=== PATIENT | female | born 1970 | race Caucasian/White ===

== ENCOUNTER 2024-10-01 08:50 | Emergency (ER) | payer OTHER, SELFPAY ==
[2024-10-01 08:52] VITALS: BP 176/102
--- NOTE | 2024-10-01 09:28 | ED.GENMED ---
History of Present Illness
<Yeimi Armendariz PA-C - Last Filed: 10/01/24 14:11>
General
Chief Complaint: Back Pain
Source: patient
Exam Limitations: none
Time Seen by Provider: 10/01/24 09:23
Nursing documentation reviewed up to this point in time: agreed with
History of Present Illness
History of Present Illness:
53-year-old female with past medical history of asthma presents emergency department today with concerns of left upper back pain and left-sided chest pain. Patient reports that this for started 3 days ago when she was getting ready to walk outside
to take a walk with her on the cold took her breath away and she started to get the onset of this pain. There is no exertional component. She states that Advil and lidocaine patches takes the edge off of her pain. Patient has no family or
personal history of cardiac disease. She denies any cough or cold-like symptoms, denies any fevers or chills. She denies any abdominal pain, nausea, vomiting. She denies any recent long distance travel, denies any redness or swelling in her lower
extremities. Patient denies any use of exogenous estrogen. Patient denies any injury or trauma to the area.
Review of Systems
<Yeimi Armendariz PA-C - Last Filed: 10/01/24 14:11>
Review of Systems
All Other Systems: ROS reviewed and negative except as documented in HPI and ROS
Phy Exam
<Yeimi Armendariz PA-C - Last Filed: 10/01/24 14:11>
Physical Exam
Physical Exam:
General: Patient is well appearing and in no acute distress; non-toxic
Skin: Warm and dry, no rashes or lesions
Head: Normocephalic, atraumatic
Eyes: Sclera non-icteric. EOMs intact. PERRLA.
Cardiac: Regular rate and rhythm, no murmurs
Peripheral Vascular: No lower extremity swelling or edema
Pulm: Normal respiratory effort, no wheezes, rales, or rhonchi
Musculoskeletal: Mild tenderness to palpation of left upper chest wall. No pain with passive ROM of left shoulder no palpable bony deformities
Neuro: CN II-XII intact, no focal neurologic deficits.
Psychiatric: Appropriate mood and affect.
Course
<Yeimi Armendariz PA-C - Last Filed: 10/01/24 14:11>
Orders/Labs/Results
Orders:
Orders
10/01/24 08:56
Electrocardiogram (*1) Urgent
Reason for Study: Chest Pain
10/01/24 08:57
EKG- Treatment ONCE
10/01/24 09:47
CR Chest - 2 Views Urgent
Comment:
Reason For Exam: left sided chest pain
10/01/24 09:56
Complete Blood Count/With Diff Urgent
Comprehensive Metabolic Panel Urgent
Troponin I Urgent
Abnormal Lab Results
10/01/24
09:56
Absolute Lymphs (auto) 1.1 L 10^3/uL
(1.2-3.4)
Immature Gran % 0.6 H %
(0-0.5)
Glucose 103 H mg/dl
(70-99)
10/01/24 09:56
10/01/24 09:56
Vital Signs
Initial and Last Documented VS:
Initial Vital Signs
Temp Pulse Resp BP Pulse Ox
98.6 F 102 16 176/102 99
10/01/24 08:52 10/01/24 08:52 10/01/24 08:52 10/01/24 08:52 10/01/24 08:52
Last Documented Vital Signs
Temp Pulse Resp BP Pulse Ox
98.6 F 91 20 143/94 99
10/01/24 08:52 10/01/24 11:00 10/01/24 11:00 10/01/24 10:00 10/01/24 08:52
<Sae Joe DO - Last Filed: 10/01/24 11:20>
Orders/Labs/Results
Orders:
Orders
10/01/24 08:56
Electrocardiogram (*1) Urgent
Reason for Study: Chest Pain
10/01/24 08:57
EKG- Treatment ONCE
10/01/24 09:47
CR Chest - 2 Views Urgent
Comment:
Reason For Exam: left sided chest pain
10/01/24 09:56
Complete Blood Count/With Diff Urgent
Comprehensive Metabolic Panel Urgent
Troponin I Urgent
Abnormal Lab Results
10/01/24
09:56
Absolute Lymphs (auto) 1.1 L 10^3/uL
(1.2-3.4)
Immature Gran % 0.6 H %
(0-0.5)
Glucose 103 H mg/dl
(70-99)
10/01/24 09:56
10/01/24 09:56
Vital Signs
Initial and Last Documented VS:
Initial Vital Signs
Temp Pulse Resp BP Pulse Ox
98.6 F 102 16 176/102 99
10/01/24 08:52 10/01/24 08:52 10/01/24 08:52 10/01/24 08:52 10/01/24 08:52
Last Documented Vital Signs
Temp Pulse Resp BP Pulse Ox
98.6 F 91 20 143/94 99
10/01/24 08:52 10/01/24 11:00 10/01/24 11:00 10/01/24 10:00 10/01/24 08:52
<Yeimi Armendariz PA-C - Last Filed: 10/01/24 14:11>
MDM/Problems Addressed
Differential Diagnosis Includes:
see below
MDM/Problems Addressed:
NUMBER AND COMPLEXITY OF PROBLEMS ADDRESSED AT THE ENCOUNTER
� Chronic conditions affecting care: asthma
� Acute Exacerbation and/or Progression of Chronic Illness:
� Differential Diagnosis includes: pneumonia, musculoskeletal sprain/strain, costochondritis, pneumothorax
AMOUNT AND/OR COMPLEXITY OF DATA TO BE REVIEWED AND ANALYZED
� I performed an independent evaluation of and my interpretation is:
EKG: normal sinus rhythm rate 81 with no ischemic changes
X-rays:
Laboratory Studies:
Other:
� Review of other/old records: no previous ER physician documentation or hospital discharge summaries to review
� Clinical information was obtained by an independent historian: present with patient who provides history
� Prescriptions/Medications Considered but not given: none
� Further testing considered but not performed: n/a
RISK OF COMPLICATIONS AND/OR MORBIDITY OR MORTALITY OF PATIENT MANAGEMENT
� Social determinants of health affecting care: n/a
� Discussion with other providers: none
� Escalation of care including admission/observation vs risk of discharge considered:
53-year-old female with past medical history of asthma presents emergency department today with concerns of left upper back pain and left-sided chest pain. Patient reports that this for started 3 days ago when she was getting ready to walk outside
to take a walk with her on the cold took her breath away and she started to get the onset of this pain. Her CXR does not show any evidence of acute cardiopulmonary abnormality. Suspect inflammatory process/musculoskeletal etiology to
patient's symptoms. Will start on short course of steroids. Patient stable for discharge.
<Yeimi Armendariz PA-C - Last Filed: 10/01/24 14:11>
*Pulse Oximetry
Patient hypoxic: no
*Critical Care Note
Total Time (30-74mins, 75-104mins- exclusive of procedures): Not Applicable
ED Attending Note
<Yeimi Armendariz PA-C - Last Filed: 10/01/24 14:11>
-
Portions of this chart may have been created with voice recognition software.� Occasional wrong word or��sound alike� substitutions may have occurred due to the inherent limitations of voice recognition software.
<Sae Joe DO - Last Filed: 10/01/24 11:20>
ED Attending Note
Patient seen and examined by attending physician: Yes
I performed the substantive portion of visit, reviewed & personally made and approve the management plan that is documented in note by myself or RISA.: Yes
ED Attending Note:
Patient is a 53-year-old female with a history of asthma, myasthenia gravis and rheumatoid arthritis who presents after developing a sharp pain in her left upper to mid back while out for a walk 3 days ago when his significantly very cold. Patient
states it hurts to breathe and move. Patient denies shortness of breath but states breathing does hurt. Patient denies chest pain or palpitations. Patient is concerned that possible cardiac disease. Patient is a longtime non-smoker. Patient
denies any GI or symptoms. Patient denies any risk factors for PE or DVT. Patient denies any leg pain or swelling. On physical exam patient is not in any distress. Heart is regular without murmur, rub or gallop. Lungs are clear. Mildly
reproducible tenderness in the left paravertebral region just inferior to the scapula. Abdomen is soft nontender. Extremities without cyanosis, edema or tenderness. Labs reviewed as well as chest x-ray. Related to the musculoskeletal. Patiently
treated with steroids and discharge.
Discharge Plan
Departure
Patient Disposition: Home (Routine Discharge)
Date of Disposition: 10/01/24
Time of Disposition: 11:15
Patient with high blood pressure during this ER visit?: Yes
Condition: Good
Discharge Problem:
Back pain
Instructions: Back Pain, BLOOD PRESSURE
Prescriptions:
New
prednisone 20 mg tablet
40 mg PO DAILY 5 Days Qty: 10 0RF
Referrals:
Divya Gale DO [Family Provider] -
Activity Restrictions/Additional Instructions:
Prednisone sent to your pharmacy.
PLEASE RETURN EMERGENCY DEPARTMENT SHOULD YOU EXPERIENCE ANY ACUTE WORSENING OF HER SYMPTOMS, CHEST PAIN, SHORTNESS OF BREATH, INTRACTABLE NAUSEA, VOMITING, DIZZINESS, LIGHTHEADEDNESS, OR ANY OTHER SIGNS OR SYMPTOMS CONCERNING TO YOU.
Interventions
Interventions:
*Risk Screen - Suicide Last Done: 10/01/24 08:56
*Neglect/Abuse Screening Last Done: 10/01/24 08:56
*ED COVID-19 Vaccine History Last Done: 10/01/24 09:44
*Nursing Disposition Last Done: 10/01/24 11:22
ED-Musculoskeletal Assessment Last Done: 10/01/24 09:44
Discharge Date and Time
Discharge Date/Time: 10/01/24 12:41
Print Language: FRENCH
[2024-10-01 09:43] VITALS: BP 145/79
[2024-10-01 10:00] VITALS: BP 143/94
[2024-10-01 10:02] LABS: % Basophils 1.1 % (0-2); % Eosinophils 1.1 % (0-6); % Immature Granulocytes 0.6 % (0-0.5); % Monocytes 8.4 % (1.7-9.3); % Neutrophils 64.8 % (42.2-75.2); Absolute Basophils 0.1 10^3/uL (0-0.2); Absolute Eosinophils 0.1 10^3/uL (0-0.7); Absolute Lymphocytes 1.1 10^3/uL (1.2-3.4); Absolute Monocytes 0.4 10^3/uL (0.1-0.6); Absolute Neutrophils 3.1 10^3/uL (1.4-6.5); Hemoglobin 13.6 g/dL (12.0-16.0); Mean Corpuscular Hgb 29.1 pg (27.0-31.0); Mean Corpuscular Volume 85.5 fL (81.0-99.0); Mean Platelet Volume 9.9 fL (7.4-10.4); Nucleated Red Blood Cells % 0 %; Platelet Count 298 10^3/uL (130-400); Red Blood Cell Count 4.68 10^6/uL (4.20-5.40); Red Cell Dist. Width 12.4 % (11.5-14.5); White Blood Cell Count 4.8 10^3/uL (4.8-10.8)
[2024-10-01 10:17] LABS: ALT (SGPT) 24 U/L (0-35); AST (SGOT) 30 U/L (14-36); Albumin 4.7 g/dl (3.5-5.0); Alkaline Phosphatase 76 U/L (38-126); Blood Urea Nitrogen 12 mg/dl (7-17); Calcium 9.7 mg/dl (8.4-10.2); Carbon Dioxide 25 mmol/L (22-30); Chloride 104 mmol/L (98-107); Glucose 103 mg/dl (70-99); Potassium 3.9 mmol/L (3.5-5.1); Sodium 139 mmol/L (135-145); Total Bilirubin 0.3 mg/dl (0.2-1.3); Total Protein 7.4 g/dl (6.3-8.2); eGFR > 60.00
[2024-10-01 10:29] LABS: Troponin I < 0.012 ng/ml
== END 2024-10-01 12:41 | disposition home or self-care (01) ==
LOC: EMR 08:50
PROVIDERS: Physician Assistant; EMERGENCY PHYSICIAN Emergency Medicine; FAMILY PHYSICIAN Internal Medicine
DX: M54.6 Pain in thoracic spine (principal); R03.0 Elevated blood-pressure reading, without diagnosis of hypertension; J45.909 Unspecified asthma, uncomplicated; G70.00 Myasthenia gravis without (acute) exacerbation; M06.9 Rheumatoid arthritis, unspecified
CPT/HCPCS: 99285; 71046; 80053; 84484; 85025; 93005

== ENCOUNTER 2025-07-27 15:23 | Inpatient (IN) | payer OTHER, SELFPAY ==
[2025-07-25 01:14] VITALS: BP 146/102
--- NOTE | 2025-07-25 02:34 | ED.GENMED ---
History of Present Illness
General
Chief Complaint: Cough
Time Seen by Provider: 07/25/25 01:40
Nursing documentation reviewed up to this point in time: agreed with
History of Present Illness
History of Present Illness:
54-year-old female presents to the ER with her for evaluation and treatment of severe cough which has prevented her from sleeping this week. Patient started getting sick on Sunday, similar to her . Patient has noted decreased
appetite and severe cough causing her to vomit frequently. Patient states that this is similar to when she had pertussis. She is on long-term immunosuppressants due to her prior history of myasthenia gravis and rheumatoid arthritis. She denies
any fevers this week. She did see her primary care physician and was initiated on inhalers along with Tessalon Perles. Patient notes no improvement in her symptoms, and in fact worsening today prompting visit to the ER. She denies any prior
history of requiring mechanical ventilation.
Review of Systems
Review of Systems
Allergies reviewed?: Yes
Phy Exam
Physical Exam
Physical Exam:
Patient is awake, alert, appears in anxious, preferring to stand at the bedside, head is NCAT, PERRL, EOMI , Right eye with scleral injection, mucous membranes dry, conjunctiva pink, heart regular rate and rhythm without murmurs or ectopy, lungs
with decreased air movement, spastic barking cough provoked with inspiration, no crepitus, no JVD, abdomen is soft and nontender on palpation, extremities without edema, GCS is 15
Course
Orders/Labs/Results
Orders:
Orders
07/25/25 02:16
Albuterol Sulfate [Ventolin Nebules] 10 mg INH R NOW STA
MethylPREDNISolone PF [Solu-Medrol Pf] 125 mg IV NOW STA
CR Chest Portable - 1 View Urgent
Comment:
Reason For Exam: cough
Reason Study Needs to be Portable: Unable to Transport
07/25/25 02:26
Bordetella Pertussis IgA,G,M [S] Urgent
Complete Blood Count/With Diff Urgent
Comprehensive Metabolic Panel Urgent
Influenza A+B Rapid Molecular Urgent
DOUGLAS Source: Nasal Swab
Specimen Description:
Respiratory Syncytial Virus Urgent
DOUGLAS Source: Nasal Swab
Specimen Description:
Date Specimen was Collected: 07/25/25
Time Specimen was Collected: 02:17
07/25/25 02:34
Urinalysis Reflex To Culture Urgent
0.9% Sodium Chloride 1000 ml [Nss] 1,000 ml IV BOLUS
07/25/25 03:31
Morphine Sulfate 2 mg IV NOW STA
Abnormal Lab Results
07/25/25
02:26
Absolute Neuts (auto) 6.8 H 10^3/uL
(1.4-6.5)
Absolute Monos (auto) 1.0 H 10^3/uL
(0.1-0.6)
Lymphocytes % 15.5 L %
(20.5-51.1)
Monocytes % 10.7 H %
(1.7-9.3)
Chloride 108 H mmol/L
(98-107)
Creatinine 0.5 L mg/dL
(0.6-1.0)
Glucose 100 H mg/dl
(70-99)
07/25/25 02:26
07/25/25 02:26
CBC reassuring. Kidney function preserved.
Vital Signs
Initial and Last Documented VS:
Initial Vital Signs
Temp Pulse Resp BP Pulse Ox
98.1 F 106 24 146/102 98
07/25/25 01:14 07/25/25 01:14 07/25/25 01:14 07/25/25 01:14 07/25/25 01:14
Last Documented Vital Signs
Temp Pulse Resp BP Pulse Ox
98.2 F 100 14 128/87 98
07/25/25 02:55 07/25/25 03:03 07/25/25 03:03 07/25/25 03:03 07/25/25 03:03
MDM/Problems Addressed
Differential Diagnosis Includes:
Differential diagnosis to consider but not limited to pneumonia, bronchospasm, RAD, interstitial pneumonitis along with other etiologies considered
Chronic conditions affecting care:
Myasthenia gravis
*Radiology
Radiology exam reviewed: preliminary read by ED provider (I independently viewed and interpreted portable chest x-ray showing no infiltrate, clear lungs, no pneumothorax)
*Pulse Oximetry
SaO2: 98
Oxygen Mode of Delivery: Room air
Patient hypoxic: no
*Critical Care Note
Total Time (30-74mins, 75-104mins- exclusive of procedures): Not Applicable
Update Note
Update Note:
Patient with persistent coughing throughout entire period of observation in the ER. Patient given IV steroids along with hour-long breathing treatment with no change in her symptoms. Discussed with patient and present at bedside clear
chest x-ray. Reassuring labs so far. Flu testing negative. Awaiting pertussis testing. Given inability to cease coughing, I would feel comfortable sending patient home, in particular as she has been able to eat or drink and is immunocompromised
from her chronic medications. They agree with plan for admission. I reviewed patient presentation with the hospitalist.
ED Attending Note
-
Portions of this chart may have been created with voice recognition software.� Occasional wrong word or��sound alike� substitutions may have occurred due to the inherent limitations of voice recognition software.
Discharge Plan
Departure
Patient Disposition: Admit
Date of Disposition: 07/25/25
Time of Disposition: 03:37
Presentation/result/management discussed w/ accepting MD/DO: Hospitalist
Discharge Problem:
intractable cough, Immunosuppressed status
Prescriptions:
No Action
multivitamin Tablet
2 tab PO DAILY
fluticasone propion-salmeterol [Advair Diskus] 250-50 mcg/dose Blister With Device
1 inh INHALATION BID
benzonatate [Tessalon Perles] 100 mg Capsule
100 mg PO TID PRN (Reason: cough)
mycophenolate mofetil [CellCept] 200 mg/mL Suspension For Reconstitution
PO BID
Patient Comments:
pt does not know mg
albuterol sulfate 5 mg/mL Solution For Nebulization
2.5 mg INHALATION Q6H PRN (Reason: cough)
cholecalciferol (vitamin D3) [Vitamin D3] 25 mcg (1,000 unit) Tablet
25 mcg PO DAILY
Interventions
Interventions:
*Risk Screen - Suicide Last Done: 07/25/25 01:14
*Neglect/Abuse Screening Last Done: 07/25/25 01:14
*ED- Fall Risk Assessment Last Done: 07/25/25 01:14
*ED COVID-19 Vaccine History Last Done: 07/25/25 01:14
*ED Influenza Vaccine History Last Done: 07/25/25 01:14
ED- Pulmonary Assessment Last Done: 07/25/25 02:30
Discharge Date and Time
Print Language: CENTRAL AFRICAN
[2025-07-25] MEDS: SOLU-MEDROL PF 125 MG IV (02:35)
[2025-07-25 02:41] VITALS: BMI 27.1
[2025-07-25] MEDS: VENTOLIN NEBULES 10 MG INH (02:50)
[2025-07-25] MEDS: NSS 1000 IV ×3 (03:00→19:23)
[2025-07-25 03:02] LABS: Hematocrit 37.7 % (37.0-47.0); Hemoglobin 12.8 g/dL (12.0-16.0); Mean Corp Hgb Conc. 34.0 g/dL (33.0-37.0); Mean Corpuscular Volume 82.9 fL (81.0-99.0); Nucleated Red Blood Cells % 0 %; Platelet Count 337 10^3/uL (130-400); Red Cell Dist. Width 12.1 % (11.5-14.5)
[2025-07-25 03:03] VITALS: BP 128/87
[2025-07-25 03:22] LABS: ALT (SGPT) 25 U/L (0-35); AST (SGOT) 25 U/L (14-36); Albumin 4.9 g/dl (3.5-5.0); Alkaline Phosphatase 101 U/L (38-126); Blood Urea Nitrogen 9 mg/dl (7-17); Calcium 10.1 mg/dl (8.4-10.2); Carbon Dioxide 23 mmol/L (22-30); Chloride 108 mmol/L (98-107); Estimated Creatinine Clearance 92 ml/min; Glucose 100 mg/dl (70-99); Potassium 3.9 mmol/L (3.5-5.1); Sodium 141 mmol/L (135-145); Total Protein 7.9 g/dl (6.3-8.2); eGFR > 60.00
[2025-07-25] MEDS: MORPHINE SULFATE 2 MG IV ×2 (03:46→08:00)
[2025-07-25 03:57] LABS: Urine Character Clear (Clear)
--- NOTE | 2025-07-25 04:40 | HPS.HSE ---
Family Physician
-
Family Physician: Divya Gale
Chief Complaint
-
Cough
History of Present Illness
This is a 54-year-old female with a plus past medical history significant for myasthenia gravis, rheumatoid arthritis on CellCept, who history of recurrent cough symptoms but no known diagnosis of asthma who presents to the emergency department with
approximately 1 week of a nonproductive cough.
Patient reported that she began having symptoms about 4 days after spouse had upper respiratory symptoms. He had cough and congestion and he did take antibiotic. Patient reported that she saw her PMD about 3 days after onset of symptoms was not
placed on any antibiotics. She was prescribed some inhalers. Patient reports mostly a nonproductive cough. She reports that the cough paroxysmal and sometimes incessant and prevents her from sleeping. It is not to be worse when she lays down.
She reports a very dry throat. She reports some nasal congestion and some rhinorrhea. She also reports some left heel discomfort and fullness. She now also reports right eye redness. She reports a cough associated with tachycardia and some chest
discomfort. She has not had any fevers or chills.
Patient reports that she had trouble swallowing large pills but denies any trouble swallowing food or coughing when eating or drinking regular food. She had a negative COVID test at home.
In the Emergency Department she was afebrile, blood pressure was 128/87, she was tachycardic to 133 and she was satting 97% on room air.
Chest x-ray shows no acute infiltrates. Influenza test and RSV test were negative. CBC was unremarkable. Electrolytes BUN/creatinine were all normal. Pertussis testing pending.
Medical History
Past Medical History
Past Medical History: Reports Other (Myasthenia)
Past Surgical History: Reports Other
Social History
Tobacco: Non-smoker
Alcohol: None
Drug: None
Family History
Family History: Not pertinent
Allergies / Home Medications
Allergies reflects when Allergies were last updated in [employer].
Home Medications with original date entered in [employer]
Allergy/Medication List:
Allergies
Allergy/AdvReac Type Severity Reaction Status Date / Time
pseudoephedrine (From AdvReac Mild heart Verified 07/25/25 01:13
Sudafed) racing
guaifenesin (From Mucinex) AdvReac shoking Verified 07/25/25 01:13
IVIG Allergy Unknown Uncoded 07/25/25 01:13
Home Medications
albuterol sulfate 5 mg/mL(0.5 %) solution for nebulization 2.5 mg inhalation Q6H PRN cough 07/25/25
benzonatate 100 mg capsule 100 mg PO TID PRN cough 07/25/25
cholecalciferol (vitamin D3) 25 mcg (1,000 unit) tablet (Vitamin D3) 25 mcg PO DAILY 07/25/25
fluticasone 250 mcg-salmeterol 50 mcg/dose blistr powdr for inhalation (Advair Diskus) 1 inh inhalation BID 07/25/25
multivitamin 2 tab PO DAILY 07/25/25
mycophenolate mofetil 200 mg/mL oral powder for suspension (CellCept) mg PO BID 07/25/25
Review of Systems
-
Constitutional: Reports No Symptoms
EENT: Reports Runny Nose
Respiratory: Reports Cough
Cardiac: Reports No Symptoms
Abdomen/GI: Reports No Symptoms
: Reports No Symptoms
Musculoskeletal: Reports No Symptoms
Skin: Reports No Symptoms
Neurological: Reports No Symptoms
Endocrine: Reports No Symptoms
Hematologic/Lymphatic: Reports No Symptoms
Psych: Reports No Symptoms
Physical Exam
Vital Signs
Vital Signs
Temp Pulse Resp BP Pulse Ox
98.2 F 133 18 128/87 97
07/25/25 02:55 07/25/25 04:00 07/25/25 04:00 07/25/25 03:03 07/25/25 03:27
Physical Exam
General: Well Developed, Well Nourished and Comfortable
HEENT: NormoCephalic, Anicteric, Moist mucous membranes, PERRLA and [place] Conjunctivae
Respiratory: Clear; No Wheezes, Rales, Rhonchi, Crackles or Non Labored Respirations
Cardiac: S1/S2 and Regular Rhythm
Breast: Deferred by me
GI: Soft, Non Tender, Non Distended and Normal Bowel Sounds
Rectal: Deferred by Provider
Genito-urinary: Deferred by me
Musculoskeletal: No Clubbing, No Cyanosis and No Edema
Skin: Warm
Neuro: AO x 3 and Nonfocal/grossly intact
Hematologic/Lymphatic: No Lymphadenopathy
Laboratory Results
-
07/25/25 02:26
07/25/25 02:26
Laboratory Results
Total Bilirubin 0.5 mg/dl (0.2-1.3) 07/25/25 02:26
AST 25 U/L (14-36) 07/25/25 02:26
ALT 25 U/L (0-35) 07/25/25 02:26
Alkaline Phosphatase 101 U/L (38-126) 07/25/25 02:26
Data Reviewed
-
Diagnostic Radiology: Image Personally Visualized and interpreted
Old Records: Reviewed
Impression/Plan
-
IMPRESSION:
54-year-old female with a history of myasthenia gravis and rheumatoid arthritis on CellCept presents to the emergency department after developing cough, which is nonproductive. She also has some sinus congestion and rhinorrhea as well as a earache.
She has no fevers or chills. X-ray is clear. CBC is unremarkable and electrolytes are within the normal range. She is not requiring oxygen., She had significant cough paroxysms preventing her from sleeping and had to be placed on continuous
nebs in the emergency department. She was also started on steroids. Viral testing is negative.
PLAN:
Laryngobronchitis -suspect possibly cough variant asthma secondary to viral URI giving spouse with recent similar symptoms. Unlikely pertussis but cannot rule out entirely.
- Admit to MedSurg observation
-Continue with albuterol every 3 hours as needed wheezing or shortness of breath or cough
-Continue albuterol every 6 hours standing
-Continue arrived via
-Taper down the steroids to 40 mg daily
-Cough suppression with codeine syrup + tessalon pearles
- No indication for antibiotics at this time
- pulmonary consultation
DVT PPX - SCD
Code status - Full Code
[2025-07-25 05:28] VITALS: BP 133/76
--- NOTE | 2025-07-25 09:39 | CM ---
Patient seen at bedside in ED with patient . Patient states that they live in a 2 story home with her on the first floor. Patient has a nebulizer that is 15 years old and she has not changed the tubing for a long time. Patient uses the [facility] in
[place] on and her current PCP is Dr. Gale. Patient states she anticipates changing but has not done so as of yet. CM reviewed OBS form with patient and and provided forms. Patient is on droplet precautions and states that she
understands OBS form, noted form verbally reviewed and did not have patient sign due to precautions. CM will continue to follow for discharge planning needs.
Plan; home with no needs vs home with VN pending medical treatment form
[2025-07-25] MEDS: DUONEB INH (10:25)
--- NOTE | 2025-07-25 10:33 | W.PN.HOSP.TC ---
Today's Communication/Plan
-
change to decadron, hycodan
add eye oint, pulmicort, cepacol losenges
await pulm
Assessment / Plan
Assessment / Plan
pt is a 54 year old female
Laryngeal bronchitis-- strongly suspect viral with 'pink eye', sore throat, cough, etc--pt is immunosuppressed on cellcept for Myasthenia gravis--RSV and influenza neg--pertussis pending--will check COVID--change oral prednisone to decadron 4mg IV
H7Y--gwwy on antibiotics--cont nebs, add pulmicort--change to hycodan cough med--add cepacol--await pulm input
tachycardia--likely due to coughing and inadequate hydration--start NSS at 125ml/hr
'pink eye'--think viral--will add erythromycin eye ointment for now
DVT Proph - SCD
Code status - Full Code
Anticipated Discharge: 24 - 48 hours
Subjective/Interval History
-
Date of Service: July 25, 2025
pt c/o continuous coughing, laryngitis, pink eye....
Objective Data
-
Labs:
Laboratory Results
07/25/25
02:26
WBC 9.6
Hgb 12.8
Hct 37.7
Plt Count 337
Sodium 141
Potassium 3.9
Chloride 108 H
Carbon Dioxide 23
BUN 9
Creatinine 0.5 L
Glucose 100 H
Calcium 10.1
Total Bilirubin 0.5
AST 25
ALT 25
Alkaline Phosphatase 101
Vital Signs:
max temp for 24 hours
07/25/25
02:55
Temp 98.2 F
Vital Signs
Temp Pulse Resp BP Pulse Ox
98.2 F 124 20 133/76 97
07/25/25 02:55 07/25/25 06:00 07/25/25 06:00 07/25/25 05:28 07/25/25 06:00
Review of Systems
-
All other systems: Reviewed and negative
EENT: Reports Sore Throat
Respiratory: Reports Cough
Physical Exam
-
General: Well Developed, Well Nourished and No Apparent Distress
HEENT: Normocephalic and Atraumatic
Respiratory: Clear to Auscultation; Negative Wheezes or Rhonchi
Cardiac: Regular Rhythm, S1/S2 and Tachycardic; Negative Murmur
GI: Soft, Nontender, Nondistended and Normal Bowel Sounds
Musculoskeletal: No Clubbing, No Cyanosis and No Edema
Skin: Warm
Neuro: Awake
[2025-07-25] MEDS: PULMICORT 0.5 MG INH ×2 (10:56→18:08)
[2025-07-25] MEDS: DUONEB 3 ML INH ×3 (10:56→18:08)
[2025-07-25] MEDS: CELLCEPT 1000 MG PO ×2 (11:37→21:20)
[2025-07-25] MEDS: TYLENOL ORAL SOLUTION 650 MG PO (11:44)
[2025-07-25] MEDS: DECADRON 4 MG IV ×2 (11:45→21:19)
[2025-07-25 12:19] LABS: COVID-19 Antigen Negative (Negative)
[2025-07-25 14:03] VITALS: BP 141/88
[2025-07-25 14:04] VITALS: BMI 26.8
[2025-07-25] MEDS: ANESTHETIC LOZENGE 1 LOZENGE PO (14:17)
[2025-07-25] MEDS: HYCODAN SYRUP 10 ML PO ×2 (14:17→22:15)
[2025-07-25] MEDS: MIRALAX 17 GRAMS PO (14:44)
--- NOTE | 2025-07-25 15:13 | CON.PUL ---
Consultation
Consultation Request
Date/Time Consultation Requested: 07/25/2025
Date/Time Consultation Performed: 07/25/2025
Requesting Provider: Dr. Nash
Performing Provider: Dr. Chi Burris
Reason for Consultation: Acute respiratory insufficiency-asthmatic bronchitis
Medical History
-
History of Present Illness:
54-year-old woman with past medical history significant for myasthenia gravis, rheumatoid arthritis on CellCept, history of recurrent cough episodes, no history of asthma who presented to the emergency room with history of 1 week of nonproductive
coughing. Admitted from the emergency room on 07/25/2025.
Patient developed symptoms about 4 days after her spouse had upper respiratory symptoms.
Reports upper respiratory symptoms.
Denies hemoptysis or phlegm production.
About 3 days prior to admission she was placed on antibiotics by primary doctor.
She was also prescribed some inhalers.
Cough is mostly nonproductive.
No other associated symptoms.
She has significant cough paroxysms with subsequent shortness of breath.
Interfering with his sleep and lifestyle.
Denies any fevers, chills or rash.
-
Chest x-ray without acute infiltrate. All testing has been negative.
We were consulted for evaluation and therapy of this patient.
Past Medical History
Past Medical History: Other (See assessment and plan findings)
Social History
Tobacco: Non-smoker
Alcohol: None
Drug: None
Personal:
Living: With Family
Family History
Family History: Reviewed & Not Pertinent
Allergies / Home Medications
Allergies
Allergy/AdvReac Type Severity Reaction Status Date / Time
pseudoephedrine (From AdvReac Mild heart Verified 07/25/25 01:13
Sudafed) racing
guaifenesin (From Mucinex) AdvReac shoking Verified 07/25/25 01:13
IVIG Allergy Unknown Uncoded 07/25/25 01:13
Home Medications
�Medication �Instructions �Recorded �Confirmed �Last Taken �Type
albuterol sulfate 2.5 mg/3 mL 2.5 mg inhalation R Q4HPRN PRN sob 07/25/25 07/25/25 Unknown History
(0.083 %) solution for nebulization
benzonatate 100 mg capsule 100 mg PO TIDPRN PRN cough 07/25/25 07/25/25 Unknown History
cholecalciferol (vitamin D3) 25 25 mcg PO DAILY 07/25/25 07/25/25 Unknown History
mcg (1,000 unit) tablet (Vitamin
D3)
fluticasone 250 mcg-salmeterol 50 1 inh inhalation R BID 07/25/25 07/25/25 Unknown History
mcg/dose blistr powdr for
inhalation (Advair Diskus)
mycophenolate mofetil 200 mg/mL 1,000 mg PO BID 07/25/25 07/25/25 Unknown History
oral powder for suspension
(CellCept)
therapeutic multivitamin 1 tab PO DAILY 07/25/25 07/25/25 Unknown History
Review of Systems
-
History Source: Patient
All other systems: Negative unless noted
Vitals / Labs / Diagnostic Testing
Vital Signs
Temp Pulse Resp BP Pulse Ox
98.3 F 119 18 141/88 95
07/25/25 14:03 07/25/25 14:03 07/25/25 14:03 07/25/25 14:03 07/25/25 15:12
Lab Data
07/25/25 02:26
07/25/25 02:26
Microbiology
07/25/25 02:26 Nasal Swab Influenza Types A & B (JIGNESH) - Final
Negative for Influenza A & B, NAAT
Negative results must be combined with clinical observations
and patient history.
Nucleic Acid Amplification test (NAAT)performed on the
[employer] platform.
07/25/25 02:26 Nasal Swab Respiratory Syncytial Virus Ag - Final
Negative for Respiratory Syncytial Virus.
A false negative result may be obtained with a specimen
collected early in the acute phase. If symptoms persist, a
new specimen should be tested.
Diagnostic Testing:
Physical Exam
-
HEENT: Normocephalic
Cardiovascular: S1/S2
Respiratory: Clear and Non-Labored Respirations
GI: Soft and Non Distended
Neurology: Awake, Alert and No Motor Deficits
Skin: Warm
General: Comfortable
Assessment
-
Acute tracheobronchitis-asthmatic bronchitis
Chest x-ray 07/25/2025: Reviewed, showed clear lungs.
Negative COVID
Negative influenza/negative RSV
Conditions present prior admission:
Rheumatoid arthritis on CellCept.
Assessment and plan:
Clinical picture likely related to asthmatic bronchitis.
Not bronchospastic on exam.
Unfortunately, significant cough interfering with lifestyle, and sleep.
Likely triggered by viral infection-exposure to who was sick with an upper respiratory infection recently. In her case with ongoing immunosuppression unlikely to mount a more robust response.
-
Agree with IV corticosteroids
Pulmicort twice a day
DuoNebs 3 times a day.
Albuterol as needed
Cough suppression as you are doing
Nasal saline spray
Ideally azelastine nasal spray will be helpful. Has significant postnasal drip.
Intolerant to Benadryl.
Continue systemic IV corticosteroids for now
-
Will add oral azithromycin 500 mg to treat a potential atypical infection and also for anti-inflammatory properties. This may also help in the long-term if he is maintained at a low dose for anti-inflammatory properties.
There is no peripheral eosinophilia-less likely allergy.
Patient does not have history of asthma or any pulmonary problems and she is a never smoker.
-
At this point no indication for CT of the chest but cannot exclude that will be necessary depending on clinical progression.
-
Continue supportive care
Will follow
-
Dr. Burris updated and in detail 07/25/2025.
Will need outpatient pulmonary follow-up.
[2025-07-25] MEDS: ERYTHROMYCIN 0.5% OPHTHALMIC OINTMENT 1 APPLIC OPHTH ×3 (15:17→21:31)
[2025-07-25 15:55] VITALS: BP 142/84
[2025-07-25] MEDS: ZITHROMAX 500 MG PO (16:04)
[2025-07-25] MEDS: ZOFRAN 4 MG IV (21:18)
[2025-07-25] MEDS: OCEAN, SALINE MIST 2 SPRAYS NASAL (21:47)
[2025-07-26] MEDS: HYCODAN SYRUP 10 ML PO ×4 (02:18→21:26)
[2025-07-26] MEDS: ZOFRAN 4 MG PO (02:18)
[2025-07-26 03:00] VITALS: BP 132/86
[2025-07-26] MEDS: NSS 1000 IV (03:27)
[2025-07-26] MEDS: DECADRON 4 MG IV ×3 (03:28→20:43)
[2025-07-26 06:05] VITALS: BMI 26.9
[2025-07-26 07:32] LABS: Hematocrit 35.2 % (37.0-47.0); Hemoglobin 11.8 g/dL (12.0-16.0); Mean Corp Hgb Conc. 33.5 g/dL (33.0-37.0); Mean Corpuscular Volume 87.1 fL (81.0-99.0); Platelet Count 327 10^3/uL (130-400); Red Cell Dist. Width 12.5 % (11.5-14.5)
[2025-07-26] MEDS: PULMICORT 0.5 MG INH ×2 (07:53→18:01)
[2025-07-26] MEDS: DUONEB 3 ML INH ×3 (07:53→18:01)
[2025-07-26 07:55] VITALS: BP 137/89
[2025-07-26 07:55] LABS: Blood Urea Nitrogen 9 mg/dl (7-17); Calcium 9.6 mg/dl (8.4-10.2); Carbon Dioxide 23 mmol/L (22-30); Chloride 110 mmol/L (98-107); Estimated Creatinine Clearance 92 ml/min; Glucose 163 mg/dl (70-99); Magnesium 2.1 mg/dl (1.6-2.3); Potassium 4.1 mmol/L (3.5-5.1); Sodium 141 mmol/L (135-145); eGFR > 60.00
[2025-07-26] MEDS: ERYTHROMYCIN 0.5% OPHTHALMIC OINTMENT 1 APPLIC OPHTH ×4 (08:33→21:26)
[2025-07-26] MEDS: CELLCEPT 1000 MG PO ×2 (08:35→20:42)
[2025-07-26] MEDS: TYLENOL ORAL SOLUTION 650 MG PO (08:37)
[2025-07-26] MEDS: ZITHROMAX 500 MG PO (09:23)
--- NOTE | 2025-07-26 10:09 | W.PN.HOSP.TC ---
Today's Communication/Plan
-
will add daily bowel regimen
increase ointment to both eyes
Assessment / Plan
Assessment / Plan
pt is a 54 year old female
Laryngeal bronchitis-- strongly suspect viral with 'pink eye' (now involving the left eye), sore throat, cough, etc--pt is immunosuppressed on cellcept for Myasthenia gravis--RSV, influenza, covid neg--pertussis pending--change oral prednisone to
decadron 4mg IV S5D--mbgw on antibiotics--cont nebs, add pulmicort--change to hycodan cough med--add cepacol--apprec pulm input
tachycardia--likely due to coughing and inadequate hydration--stop IVF
'pink eye'--think viral--will add erythromycin eye ointment for now
DVT Proph - SCD
Code status - Full Code
Anticipated Discharge: 24 - 48 hours
Subjective/Interval History
-
Date of Service: July 26, 2025
pt feeling a tiny bit better--c/o pink eye moved to the left and constipation
Objective Data
-
Labs:
Laboratory Results
07/26/25
07:05
WBC 12.1 H
Hgb 11.8 L
Hct 35.2 L
Plt Count 327
Sodium 141
Potassium 4.1
Chloride 110 H
Carbon Dioxide 23
BUN 9
Creatinine 0.6
Glucose 163 H
Calcium 9.6
Vital Signs:
max temp for 24 hours
07/25/25
14:03
Temp 98.3 F
Vital Signs
Temp Pulse Resp BP Pulse Ox
97.9 F 115 22 137/89 96
07/26/25 07:55 07/26/25 07:57 07/26/25 07:57 07/26/25 07:55 07/26/25 07:57
I&O
07/25/25 07/26/25 07/27/25
06:59 06:59 06:59
Intake Total 1230 / 1230
Balance 1230 / 1230
Review of Systems
-
All other systems: Reviewed and negative
EENT: Reports Other (pink eye)
Respiratory: Reports Cough
Abdomen/GI: Reports Constipated
Physical Exam
-
General: Well Developed, Well Nourished and No Apparent Distress
HEENT: Normocephalic and Atraumatic; Negative Oxygen
Respiratory: Clear to Auscultation and Other (hoarse voice)
Cardiac: Regular Rhythm and S1/S2; Negative Murmur
GI: Soft, Nontender, Normal Bowel Sounds and Distended
Musculoskeletal: No Clubbing, No Cyanosis and No Edema
Neuro: Awake and Alert
Psych: Calm
[2025-07-26] MEDS: MIRALAX 17 GRAMS PO (11:42)
--- NOTE | 2025-07-26 14:50 | W.PN.PUL3 ---
Today's Communication / Plan
-
Continue current care without change
Hopefully can transition to prednisone tomorrow
Hopefully can be discharged in the next 24 hours-she is improving
Will recommend continue Pulmicort nebulizer at discharge-patient has a nebulizer
Can continue albuterol/DuoNebs as needed
Prednisone taper
After completing 5 days of azithromycin continue low-dose 250 mg every other day for 4 weeks. Recommended short-term follow-up in my office.
Further imaging may be necessary depending on clinical situation.
Will continue to follow
Assessment
-
54-year-old woman known smoker, history of rheumatoid arthritis on CellCept. No previous history of pulmonary problems. Developed a respiratory infection after her . Has reported several weeks of ongoing coughing. Cough paroxysms
interfering with lifestyle. Chest x-ray was clear. We were consulted on 07/25/2025 for evaluation.
Acute tracheobronchitis-asthmatic bronchitis
Chest x-ray 07/25/2025: Reviewed, showed clear lungs.
Negative COVID
Negative influenza/negative RSV
Conditions present prior admission:
Rheumatoid arthritis on CellCept.
Assessment and plan:
Clinical picture likely related to asthmatic bronchitis-suspect post viral.
Not bronchospastic on exam.
Unfortunately, significant cough interfering with lifestyle, and sleep.
Likely triggered by viral infection-exposure to who was sick with an upper respiratory infection recently. In her case with ongoing immunosuppression unlikely to mount a more robust response.
-
Agree with IV corticosteroids-continue without change. Hopefully can start tapering in the next 24 hours.
Pulmicort twice a day (will recommend continue in the outpatient setting after discharge until symptoms clear)-unlikely to be able to perform inhaler technique. Patient has a nebulizer at home
DuoNebs 3 times a day.
Albuterol as needed
Cough suppression as you are doing
Nasal saline spray
Ideally azelastine nasal spray will be helpful. Has significant postnasal drip.
Intolerant to Benadryl.
-
Continue oral azithromycin 500 mg to treat a potential atypical infection and also for anti-inflammatory properties. This may also help in the long-term if he is maintained at a low dose for anti-inflammatory properties (would recommend continue
250 mg every other day upon discharge for about 4 weeks.
There is no peripheral eosinophilia-less likely allergy.
Patient does not have history of asthma or any pulmonary problems and she is a never smoker.
-
At this point no indication for CT of the chest but cannot exclude that will be necessary depending on clinical progression.
-
Has developed pinkeye: Therapy per primary team.
-
Continue supportive care
Will follow
-
Will recommend patient stay off work for about 1 week-to rest her voice. Her voice is already hoarse.
-
Dr. Burris updated and in detail 07/25/2025.
Will need outpatient pulmonary follow-up.
Subjective Data
-
Date of Service:
Date of Service: July 26, 2025
Chief Complaint: Pulmonary Follow Up
Subjective:
Continues to have cough paroxysms
No significant phlegm production
No hemoptysis
Afebrile
Has developed pinkeye
Review of Systems
Cardiopulmonary: Cough
Objective Data
Data Reviewed
Vital Signs / I&O / Oxygen:
Vital Signs
Temp Pulse Resp BP Pulse Ox
97.9 F 102 20 137/89 96
07/26/25 07:55 07/26/25 13:34 07/26/25 13:34 07/26/25 07:55 07/26/25 13:34
Intake and Output
07/25/25 07/26/25 07/27/25
06:59 06:59 06:59
Intake Total 1230 / 1230
Balance 1230 / 1230
SaO2 96
Physical Exam
General: Comfortable
HEENT: Normocephalic
Cardiovascular: S1-S2
Respiratory: Non-Labored Respirations
GI: Soft and Non Distended
Neurology: Awake, Alert and No Motor Deficits
Skin: Warm
Labs/Micro/Reports
Lab Data
07/26/25 07:05
07/26/25 07:05
Microbiology
07/25/25 03:45 Urine Urine Culture - Final
NO GROWTH
07/25/25 02:26 Nasal Swab Influenza Types A & B (JIGNESH) - Final
Negative for Influenza A & B, NAAT
Negative results must be combined with clinical observations
and patient history.
Nucleic Acid Amplification test (NAAT)performed on the
[employer] platform.
07/25/25 02:26 Nasal Swab Respiratory Syncytial Virus Ag - Final
Negative for Respiratory Syncytial Virus.
A false negative result may be obtained with a specimen
collected early in the acute phase. If symptoms persist, a
new specimen should be tested.
[2025-07-26 15:58] VITALS: BP 131/80
[2025-07-26] MEDS: OCEAN, SALINE MIST 2 SPRAYS NASAL (17:00)
[2025-07-26] MEDS: SENOKOT-S 1 TABLET PO (20:43)
[2025-07-26 20:55] VITALS: BP 158/89
[2025-07-26 23:03] VITALS: BP 129/88
[2025-07-27] MEDS: 0.45%NACL 1000 IV (00:10)
[2025-07-27] MEDS: DULCOLAX 10 MG RECTAL (02:45)
[2025-07-27] MEDS: DECADRON 4 MG IV ×3 (04:49→20:59)
[2025-07-27] MEDS: HYCODAN SYRUP 10 ML PO (06:46)
[2025-07-27 07:45] VITALS: BP 135/91
[2025-07-27] MEDS: SENOKOT-S PO (07:56)
[2025-07-27] MEDS: ZITHROMAX 500 MG PO (07:56)
[2025-07-27] MEDS: MIRALAX PO (07:56)
[2025-07-27] MEDS: ERYTHROMYCIN 0.5% OPHTHALMIC OINTMENT 1 APPLIC OPHTH ×4 (07:57→20:59)
[2025-07-27] MEDS: PULMICORT 0.5 MG INH ×2 (08:17→20:02)
[2025-07-27] MEDS: DUONEB 3 ML INH ×3 (08:17→20:02)
[2025-07-27] MEDS: MIRALAX 17 GRAMS PO (08:17)
[2025-07-27] MEDS: CELLCEPT PO ×3 (08:19→21:40)
[2025-07-27 09:24] LABS: Hematocrit 39.6 % (37.0-47.0); Hemoglobin 13.4 g/dL (12.0-16.0); Mean Corp Hgb Conc. 33.8 g/dL (33.0-37.0); Mean Corpuscular Volume 85.5 fL (81.0-99.0); Platelet Count 422 10^3/uL (130-400); Red Cell Dist. Width 12.5 % (11.5-14.5)
--- NOTE | 2025-07-27 09:51 | W.PN.PUL.V3 ---
Today's Communication / Plan
-
No change in Decadron.
Finally course of antibiotics-Augmentin initiated after finish course of azithromycin
Bordetella pending
Assessment
-
54-year-old woman known smoker, history of rheumatoid arthritis on CellCept. No previous history of pulmonary problems. Developed a respiratory infection after her . Has reported several weeks of ongoing coughing. Cough paroxysms
interfering with lifestyle. Chest x-ray was clear. We were consulted on 07/25/2025 for evaluation.
Acute tracheobronchitis-asthmatic bronchitis
Chest x-ray 07/25/2025: Reviewed, showed clear lungs.
Negative COVID
Negative influenza/negative RSV
Conditions present prior admission:
Rheumatoid arthritis on CellCept.
Plan
Respiratory status still tenuous-had an episode of what sounds like laryngospasm.
Supplement oxygen if needed-humidify.
Aspiration precautions.
Nebulizers.
Decadron 4 mg IV every 8 hours
Tessalon
Consider gabapentin.
Avoid narcotics-had hallucinations on Hycodan.
Consider lidocaine nebulizers if cough intractable.
Nasal sprays
CT neck-pending.
CT chest-pending.
Finite course of antibiotics-finished azithromycin-discharge on azithromycin 250 mg every other day for about 4 weeks.
Changed to Augmentin on 07/27/25.
Bordetella pertussis antibodies pending
Will recommend patient stay off work for about 1 week-to rest her voice. Her voice is already hoarse.
Dr. Burris updated and in detail 07/25/[address]
Dr. Nguyen, updated at the bedside 07/27/25.
Will need outpatient pulmonary follow-up.
Subjective Data
-
Date of Service:
Date of Service: July 27, 2025
Chief Complaint: Pulmonary Follow Up and Dyspnea Follow Up
Subjective:
. Had episode of hallucination on Hycodan, also had laryngospasm-like reaction with difficulties breathing, emesis, and dry throat, now feels better, still some shortness of breath, no wheezing, no chest pain
Review of Systems
General: Other ( per HPI)
Objective Data
Data Reviewed
Vital Signs / I&O:
Vital Signs
Temp Pulse Resp BP Pulse Ox
97.9 F 118 20 135/91 96
07/27/25 07:45 07/27/25 08:35 07/27/25 08:35 07/27/25 07:45 07/27/25 08:35
Intake and Output
07/26/25 07/27/25 07/28/25
06:59 06:59 06:59
Intake Total 1230 / 1230 1140 / 1140
Balance 1230 / 1230 1140 / 1140
SaO2: 96
Physical Exam
General: Respiratory Distress (n) and Comfortable
HEENT: Normocephalic and Anicteric
Cardiovascular: Regular Rhythm
Respiratory: Wheeze (n), Crackles (n), Rhonchi (n), Non-Labored Respirations, Accessory Resp Muscle Use (n) and Stridor (n)
GI: Soft and Non Distended
Neurology: Awake, Alert and No Motor Deficits
Skin: Warm, Cyanosis (n) and Jaundice (n)
Labs/Micro/Reports
Lab Data
07/27/25 08:59
Microbiology
07/25/25 03:45 Urine Urine Culture - Final
NO GROWTH
07/25/25 02:26 Nasal Swab Influenza Types A & B (JIGNESH) - Final
Negative for Influenza A & B, NAAT
Negative results must be combined with clinical observations
and patient history.
Nucleic Acid Amplification test (NAAT)performed on the
[employer] platform.
07/25/25 02:26 Nasal Swab Respiratory Syncytial Virus Ag - Final
Negative for Respiratory Syncytial Virus.
A false negative result may be obtained with a specimen
collected early in the acute phase. If symptoms persist, a
new specimen should be tested.
[2025-07-27 09:56] LABS: Blood Urea Nitrogen 14 mg/dl (7-17); Calcium 10.1 mg/dl (8.4-10.2); Carbon Dioxide 25 mmol/L (22-30); Chloride 104 mmol/L (98-107); Estimated Creatinine Clearance 92 ml/min; Glucose 112 mg/dl (70-99); Magnesium 2.5 mg/dl (1.6-2.3); Potassium 4.4 mmol/L (3.5-5.1); Sodium 139 mmol/L (135-145); eGFR > 60.00
--- NOTE | 2025-07-27 09:58 | W.PN.HOSP.TC ---
Addendum entered and electronically signed by Meka Patrick MD 07/27/25 15:25:
Addendum
Patient is not tolerated diet well. She has choking sensation and unable to swallow. She still having cough with tachypnea at times. Continue IV fluid and changed to mechanical soft as tolerated.
Patient discussed panic disorder. Willing to try Ativan if needed. Will reach out to her primary neurologist.
Patient reported that she received tetanus booster at primary care doctor. They usually do DTaP booster. Will call primary care doctor to find out
End
Original Note:
Today's Communication/Plan
-
Change IV fluid to dextrose and normal saline due to low oral intake
Still symptomatic, order CT of the neck and chest. Tessalon [id number], continue steroids. Discussed with radiologist, prefer IV contrast
Change IV fluid to intravenous Unasyn to better coverage
Changed to inpatient
To discussed with pulmonary
Assessment / Plan
Assessment / Plan
Physical Exam
-
General: Well Developed, Well Nourished and No Apparent Distress
HEENT: Normocephalic and Atraumatic; Negative Oxygen
Respiratory: Clear to Auscultation and Other (hoarse voice)
Cardiac: Regular Rhythm and S1/S2; Negative Murmur
GI: Soft, Nontender, Normal Bowel Sounds and Distended
Musculoskeletal: No Clubbing, No Cyanosis and No Edema
Neuro: Awake and Alert
Psych: Calm
pt is a 54 year old female
# cough with hoarseness
Still same symptoms with no improvement
Will do CT neck & chest with contrast. I d/w radiologist, better to use IV dye to better look at neck soft tissue, rule out epiglottitis
Change to Unasyn IV Abx
Change to Tessalon ATC
c/w IV steroid
pulmonary is consulted
tachycardia--likely due to coughing and inadequate hydration
change to IV D5 NS
'pink eye'--think viral--will add erythromycin eye ointment for now
# Borderline high BP
could be stress related or from IV steroid
Will monitor
#Myasthenia Gravis
Primary neurologist DR Phillips
c/w CellCept
DVT Proph - SCD
Code status - Full Code
Total time spent to see the patient, examine the patient, review data and lab results, discuss treatment plan with patient, nursing staff around 55 minutes
Anticipated Discharge: 24 - 48 hours
Subjective/Interval History
-
Date of Service: July 27, 2025
No chest pain
No sob
No fevers
Objective Data
-
Labs:
Laboratory Results
07/27/25
08:59
WBC 14.0 H
Hgb 13.4
Hct 39.6
Plt Count 422 H D
Sodium 139
Potassium 4.4
Chloride 104
Carbon Dioxide 25
BUN 14
Creatinine 0.6
Glucose 112 H
Calcium 10.1
Vital Signs:
Vital Signs
Temp Pulse Resp BP Pulse Ox
97.9 F 118 20 135/91 96
07/27/25 07:45 07/27/25 08:35 07/27/25 08:35 07/27/25 07:45 07/27/25 09:51
I&O
07/26/25 07/27/25 07/28/25
06:59 06:59 06:59
Intake Total 1230 / 1230 1140 / 1140
Balance 1230 / 1230 1140 / 1140
[2025-07-27] MEDS: CELLCEPT 1000 MG PO (10:02)
--- NOTE | 2025-07-27 12:26 | CM ---
Reviewed the chart notes and spoke with the patient at the bedside. The patient is admitted under observational status. The observation letter was provided and explained. The patient had no questions with regards to the letter.
Plan: Discharge to home when medically stable. No needs anticipated at this time.
[2025-07-27] MEDS: D5/0.9% SODIUM CHLORIDE 1000 IV (12:36)
[2025-07-27] MEDS: TYLENOL ORAL SOLUTION 650 MG PO ×2 (12:46→20:57)
[2025-07-27] MEDS: UNASYN IV ×2 (13:51→20:58)
[2025-07-27] MEDS: TESSALON PERLES 200 MG PO ×2 (14:51→21:00)
[2025-07-27 15:35] VITALS: BP 135/89
[2025-07-27] MEDS: ZOFRAN 4 MG PO (16:32)
[2025-07-27] MEDS: SENOKOT-S 1 TABLET PO (20:57)
[2025-07-27] MEDS: OCEAN, SALINE MIST 2 SPRAYS NASAL (22:24)
[2025-07-27 23:00] VITALS: BP 129/85
--- NOTE | 2025-07-27 23:30 | RESPNOTE ---
Addendum entered by Jamal Forrester, RT 07/28/25 00:53:
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
Original Note:
face tent attempted to help pt with complaints of dry mouth and hacking cough. attempt unsuccessful
[2025-07-28] MEDS: ATIVAN 1 MG PO (00:50)
[2025-07-28] MEDS: UNASYN IV ×4 (01:34→21:31)
[2025-07-28] MEDS: DECADRON 4 MG IV (05:00)
--- NOTE | 2025-07-28 06:29 | W.PN.UPDATE ---
Update Note
Progress Note Update
CT neck/chest unremarkable except for tonsil/adenoid hypertrophy and pulm nodule which needs followup. Continues anxious. Fearful of suffocating in her sleep, intractable coughing. Placed her on tele monitor� so we can watch her so hopefully she can
sleep. Agreed to Ativan po dose. here. Tried face tent. Suggested sleeping hunched over on her bedside table since leaning back makes her cough. Psychiatry consult placed for anxiety issues complicating situation.
[2025-07-28 07:45] VITALS: BP 128/86
[2025-07-28] MEDS: DUONEB 3 ML INH ×3 (07:57→19:53)
[2025-07-28] MEDS: PULMICORT 0.5 MG INH ×2 (07:57→19:53)
[2025-07-28] MEDS: D5/0.9% SODIUM CHLORIDE 1000 IV (08:51)
[2025-07-28] MEDS: ERYTHROMYCIN 0.5% OPHTHALMIC OINTMENT 1 APPLIC OPHTH ×4 (09:11→21:02)
[2025-07-28] MEDS: CELLCEPT 1000 MG PO ×2 (09:12→20:54)
[2025-07-28] MEDS: TESSALON PERLES 200 MG PO ×3 (09:12→21:00)
[2025-07-28] MEDS: SENOKOT-S 1 TABLET PO ×2 (09:12→20:54)
[2025-07-28] MEDS: MIRALAX 17 GRAMS PO (09:12)
[2025-07-28] MEDS: ZITHROMAX 500 MG PO (09:16)
--- NOTE | 2025-07-28 09:48 | W.PN.PUL.V3 ---
Today's Communication / Plan
-
Anxiolytics
Psychiatric evaluation
Discontinue steroids
Finite course of antibiotics
ENT evaluation
Speech therapy evaluation
Assessment
-
54-year-old woman known smoker, history of rheumatoid arthritis on CellCept. No previous history of pulmonary problems. Developed a respiratory infection after her . Has reported several weeks of ongoing coughing. Cough paroxysms
interfering with lifestyle. Chest x-ray was clear. We were consulted on 07/25/2025 for evaluation.
Acute tracheobronchitis-asthmatic bronchitis
Chest x-ray 07/25/2025: Reviewed, showed clear lungs.
Negative COVID
Negative influenza/negative RSV
Conditions present prior admission:
Myasthenia gravis
Plan
Respiratory status still tenuous-had an episode of what sounds like laryngospasm or vocal cord dyskinesia/factitious asthma
Supplement oxygen if needed-humidify.
Aspiration precautions.
Nebulizers.
Decadron 4 mg IV every 8 hours-no wheezing-can discontinue steroids as may be aggravating anxiety
Tessalon
Consider adding gabapentin
Avoid narcotics-had hallucinations on Hycodan.
Consider lidocaine nebulizers if cough intractable.
Nasal sprays
Episode last evening responded to Ativan suggesting psych component to vocal cord dyskinesia events
CT neck- 07/27/2025-mild adenoid and tonsillar hypertrophy, no acute abnormalities, mucous retention cyst at the base of the left maxillary sinus
CT chest-07/27/2025-no acute pulmonary process, left upper lobe 3 mm benign calcified granuloma, additional left upper lobe 2 mm nodule is not clearly calcified
Finite course of antibiotics-finished azithromycin-discharge on azithromycin 250 mg every other day for about 4 weeks.
Changed to Augmentin on 07/27/25.
Bordetella pertussis antibodies pending
Recommend psychiatric evaluation
Recommend ENT evaluation
Recommend speech therapy evaluation
Will recommend patient stay off work for about 1 week-to rest her voice. Her voice is already hoarse.
Dr. Burris updated and in detail 07/25/[address]25
Dr[address] Nguyen, updated at the bedside 07/27/25 and lengthy update 07/28/2025-reviewed vocal cord dyskinesia/factitious asthma and need for psych/anxiolytics/speech therapy and ENT evaluation
Will need outpatient pulmonary follow-up.
Subjective Data
-
Date of Service:
Date of Service: July 28, 2025
Chief Complaint: Pulmonary Follow Up and Dyspnea Follow Up
Subjective:
Another episode of what sounds like laryngospasm responding to Ativan, now no complaints of shortness of breath, wheezing or throat tightness
Review of Systems
General: Other (Per HPI)
Objective Data
Data Reviewed
Vital Signs / I&O:
Vital Signs
Temp Pulse Resp BP Pulse Ox
98.0 F 95 18 128/86 97
07/28/25 07:45 07/28/25 07:59 07/28/25 07:59 07/28/25 07:45 07/28/25 07:59
Intake and Output
07/27/25 07/28/25 07/29/25
06:59 06:59 06:59
Intake Total 1140 / 1140 2994 / 2994
Balance 1140 / 1140 2994 / 2994
SaO2: 97
Physical Exam
General: Respiratory Distress (n) and Comfortable
HEENT: Normocephalic and Anicteric
Cardiovascular: Regular Rhythm
Respiratory: Wheeze (n), Crackles (n), Rhonchi (n), Non-Labored Respirations, Accessory Resp Muscle Use (n) and Stridor (n)
GI: Soft and Non Distended
Neurology: Awake, Alert and No Motor Deficits
Skin: Warm, Cyanosis (n) and Jaundice (n)
Labs/Micro/Reports
Lab Data
07/27/25 08:59
07/27/25 08:59
Microbiology
07/25/25 03:45 Urine Urine Culture - Final
NO GROWTH
--- NOTE | 2025-07-28 09:55 | W.PN.HOSP.TC ---
Today's Communication/Plan
-
ENT consulted
Psychiatry consult; uncontrolled panic attacks
Stop steroid ( hallucinations at night)
Assessment / Plan
Assessment / Plan
Physical Exam
-
General: Well Developed, Well Nourished and No Apparent Distress
HEENT: Normocephalic and Atraumatic; Negative Oxygen
Respiratory: Clear to Auscultation and Other (hoarse voice)
Cardiac: Regular Rhythm and S1/S2; Negative Murmur
GI: Soft, Nontender, Normal Bowel Sounds and Distended
Musculoskeletal: No Clubbing, No Cyanosis and No Edema
Neuro: Awake and Alert
Psych: Calm
# cough with hoarseness
acute laryngitis
to finish 5 days of Zithromax
Empiric IV Unasyn
s/p o CT neck & chest with contrast, unremarkable.
c/w Tessalon ATC
dc IV steroid due to lack of wheezes or sore throat and potential of having hallucinations.
Appreciate pulmonary help
# Chocking and inability to breath at night
Patient has prolonged history ( years) of laryngeal issues described as chocking / irritant cough to clear her throat. She sleeps around 45 bed with multiple pillows at baseline. During illnesses like cold, her condition becomes very intense and
unable to swallow/ sleep or breathe. She has not responded to steroid therapy/ inhalation therapy. Ativan helped her to relax and sleep. ENT is consulted to rule out vocal cord pathology/ CT neck ( no masses). Consulted Psychiatry for underlying
anxiety disorder/ panic disorder.
'pink eye'--think viral--will add erythromycin eye ointment for now
#Myasthenia Gravis
Primary neurologist DR Phillips
Seems under control since her chocking episodes were presents for long time. Also steroid therapy did not help.
c/w CellCept
DVT Proph - SCD
Code status - Full Code
Total time spent to see the patient, examine the patient, review data and lab results, discuss treatment plan with patient, nursing staff around 55 minutes
Anticipated Discharge: Within 24 hours
Subjective/Interval History
-
Date of Service: July 28, 2025
Panic attack last night
Objective Data
-
Vital Signs:
Vital Signs
Temp Pulse Resp BP Pulse Ox
98.0 F 95 18 128/86 97
07/28/25 07:45 07/28/25 07:59 07/28/25 07:59 07/28/25 07:45 07/28/25 09:48
I&O
07/27/25 07/28/25 07/29/25
06:59 06:59 06:59
Intake Total 1140 / 1140 2994 / 2994
Balance 1140 / 1140 2994 / 2994
[2025-07-28 11:18] VITALS: BP 125/82
--- NOTE | 2025-07-28 11:29 | CM ---
Reviewed the chart notes. CM continues to be available to patient/family and is monitoring medical plan for needs at discharge.
Plan: Discharge to home when medically stable. No anticipated needs identified at this time.
--- NOTE | 2025-07-28 14:07 | PTOTSP ---
Dysphagia Evaluation
Patient is a 54 year old female with chronic dysphagia related to myasthenia gravis without prior signs concerning for aspiration complications. Patient reported swallowing function is currently at her baseline. Acute on chronic dysphagia risk
factors include current acute tracheobronchitis-asthmatic bronchitis and myasthenia gravis.
Recommend:
1. Regular, Thin Liquids
2. Medications - as best tolerated
3. Strategies: single sips/bites, slow rate with breaks for breathing, pick easier foods for end of meal/when fatigued (i.e., yogurts, drinks), take breaks if fatigued
4. Will f/u briefly at the acute care level. If any acute worsening of dysphagia, consider repeat video swallow study.
5. Will complete further assessment of voice and outpatient education as appropriate if laryngospasm suspected by ENT.
[2025-07-28 15:14] VITALS: BP 134/82
[2025-07-28 15:23] LABS: Bordetella Pertussis Ab, IgA 0.8 IV (<=1.1); Bordetella Pertussis Ab, IgG 2.73 IV (<=1.04); Bordetella Pertussis Ab, IgM 0.2 IV (<=1.1)
[2025-07-28] MEDS: TYLENOL ORAL SOLUTION 650 MG PO (16:08)
--- NOTE | 2025-07-28 16:51 | CON.MD ---
Consultation - Medical
-
chronic cough, laryngospasm
54 yo c Hx Myasthenia gravis, RA on Cellcept presents c chronic cough x 2 weeks
Episodes of choking with airway closing
Afebrile
CXr - Clear
Given steroids ( stopped due to possible side effects, antibiotics and inhalers without relief
PE - pt anxious , NAD
afebrile, no stridor
dry cough
OC - normal
Lungs - clear
Flex endoscopy - normal vocal cords, normal motion
erythema of arytenoids with some mucus in cricopharyngeus
A/P Chronic cough / episodes of laryngospasm
signs of inflammation in post larynx
while can be from viral inflammation, also often seen with GERD. Sx worse with laying down. MG may contribute to muscular weakness and reflux
Initially, would treat with PPI. Dietary modifications although her diet seems pretty good.
Can take a few weeks to improve
OK to discharge if able to tolerate po diet
If symptoms fail to respond, may require change in medication ( BID use or added famotidine) or upper GI endoscopy / barium swallow study
Can follow up as outpt
[2025-07-28] MEDS: NSS (PRESERVATIVE FREE) 10 ML IV (17:47)
[2025-07-28] MEDS: PROTONIX IV 40 MG IV (17:48)
[2025-07-28 19:53] VITALS: BP 132/86
[2025-07-28] MEDS: ATIVAN 0.5 MG PO (20:54)
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
[2025-07-28 23:15] VITALS: BP 115/75
[2025-07-29] MEDS: UNASYN IV (01:09)
[2025-07-29] MEDS: D5/0.9% SODIUM CHLORIDE 1000 IV (03:20)
[2025-07-29 07:02] VITALS: BP 131/84
[2025-07-29] MEDS: PULMICORT 0.5 MG INH (07:19)
[2025-07-29] MEDS: DUONEB 3 ML INH ×3 (07:19→19:13)
[2025-07-29 07:29] LABS: B. Pertussis, IgG IB FHA Positive; B. Pertussis, IgG IB PT Positive; B. Pertussis, IgG IB PT100 Positive
[2025-07-29] MEDS: PROTONIX 40 MG PO (07:57)
[2025-07-29] MEDS: ZITHROMAX 500 MG PO (07:57)
[2025-07-29] MEDS: MIRALAX PO ×2 (07:58→08:14)
[2025-07-29] MEDS: CELLCEPT 1000 MG PO ×2 (07:58→19:42)
[2025-07-29] MEDS: TESSALON PERLES 200 MG PO ×3 (07:58→21:24)
[2025-07-29] MEDS: SENOKOT-S PO ×2 (07:58→08:15)
[2025-07-29] MEDS: ERYTHROMYCIN 0.5% OPHTHALMIC OINTMENT 1 APPLIC OPHTH ×2 (08:10→14:03)
--- NOTE | 2025-07-29 09:46 | W.PN.PUL.V3 ---
Today's Communication / Plan
-
Observe off antibiotics and steroids
Nebulizers
Tessalon
Gabapentin added
Low-dose Ativan
Potential discharge in the next 24 hours
Assessment
-
54-year-old woman known smoker, history of rheumatoid arthritis on CellCept. No previous history of pulmonary problems. Developed a respiratory infection after her . Has reported several weeks of ongoing coughing. Cough paroxysms
interfering with lifestyle. Chest x-ray was clear. We were consulted on 07/25/2025 for evaluation.
Acute tracheobronchitis-asthmatic bronchitis
Chest x-ray 07/25/2025: Reviewed, showed clear lungs.
Negative COVID
Negative influenza/negative RSV
Vocal cord dyskinesia/laryngospasm
Reflux
Conditions present prior admission:
Myasthenia gravis
Plan
Respiratory status still tenuous-had an episode of what sounds like laryngospasm or vocal cord dyskinesia/factitious asthma overnight
Supplement oxygen if czwtox-tlbvffze-lctmikdeo on room air.
Aspiration precautions
Nebulizers-Pulmicort and DuoNebs
Steroids discontinued 07/28/2025
Tessalon perles continue
Gabapentin 100 mg 3 times daily added
Avoid narcotics-had hallucinations on Hycodan.
Consider lidocaine nebulizers if cough intractable-avoiding with swallowing difficulties
Nasal sprays
Episode 2 evenings ago responded to Ativan suggesting psych component to vocal cord dyskinesia events
CT neck- 07/27/2025-mild adenoid and tonsillar hypertrophy, no acute abnormalities, mucous retention cyst at the base of the left maxillary sinus
CT chest-07/27/2025-no acute pulmonary process, left upper lobe 3 mm benign calcified granuloma, additional left upper lobe 2 mm nodule is not clearly calcified
Finite course of antibiotics-finished azithromycin
Changed to Augmentin on 07/27/25 and now discontinued
Bordetella pertussis antibodies pending
Psychiatric evaluation ionfs-vpa-ieal Ativan and consider Zoloft
ENT evaluation noted-reflux suspected-PPI added
Speech therapy evaluation noted-regular thin liquids, consider repeat video swallow
Will recommend patient stay off work for about 1 week-to rest her voice. Her voice is already hoarse.
Dr. Burris updated and in detail 07/25/[address] Nguyen, updated at the bedside 07/27/25 and lengthy update 07/28/2025-reviewed vocal cord dyskinesia/factitious asthma and need for psych/anxiolytics/speech therapy and ENT evaluation
Dr. Nguyen updated at the bedside 07/29/2025
Dr. Nguyen reviewed with hospitalist Dr. Patrick 07/28/2025 as well as 07/29/2025
Outpatient pulmonary follow-up recommended
Subjective Data
-
Date of Service:
Date of Service: July 29, 2025
Chief Complaint: Pulmonary Follow Up and Dyspnea Follow Up
Subjective:
Had another episode of coughing paroxysm, choking, Ativan 0.5 mg was 'too much', currently no wheezing, shortness of breath at rest, states whenever her head cocked backwards she has coughing paroxysms as well as when she lays down flat
Review of Systems
General: Other ( per HPI)
Objective Data
Data Reviewed
Vital Signs / I&O:
Vital Signs
Temp Pulse Resp BP Pulse Ox
98 F 92 16 131/84 97
07/29/25 07:02 07/29/25 07:27 07/29/25 07:27 07/29/25 07:02 07/29/25 07:27
Intake and Output
07/28/25 07/29/25 07/30/25
06:59 06:59 06:59
Intake Total 2994 / 2994 1200 / 1200
Balance 2994 / 2994 1200 / 1200
SaO2: 97
Physical Exam
General: Respiratory Distress (n) and Comfortable
HEENT: Normocephalic and Anicteric
Cardiovascular: Regular Rhythm
Respiratory: Wheeze (n), Crackles (n), Rhonchi (n), Non-Labored Respirations, Accessory Resp Muscle Use (n) and Stridor (n)
GI: Soft and Non Distended
Neurology: Awake, Alert and No Motor Deficits
Skin: Warm, Cyanosis (n) and Jaundice (n)
Labs/Micro/Reports
Lab Data
07/27/25 08:59
07/27/25 08:59
Microbiology
07/25/25 03:45 Urine Urine Culture - Final
NO GROWTH
--- NOTE | 2025-07-29 09:53 | W.PN.HOSP.TC ---
Today's Communication/Plan
-
Goal to dc in am if tolerates gabapentin.
Assessment / Plan
Assessment / Plan
Physical Exam
-
General: Well Developed, Well Nourished and No Apparent Distress, continues to have dry mild cough while talking. in the room.
HEENT: Normocephalic and Atraumatic; Negative Oxygen
Respiratory: Clear to Auscultation/ Voice is better
Cardiac: Regular Rhythm and S1/S2; Negative Murmur
GI: Soft, Nontender, Normal Bowel Sounds and Distended
Musculoskeletal: No Clubbing, No Cyanosis and No Edema
Neuro: Awake and Alert, non focal
Psych: Calm, pleasant.
# cough with hoarseness
acute laryngitis
Negative serology for active infection: Results consistent with a prior exposure/vaccination.
finished 5 days of Zithromax
finished course of IV Abx included IV Unasyn
s/p o CT neck & chest with contrast, unremarkable.
c/w Tessalon ATC
dc IV steroid due to lack of wheezes or sore throat and potential of having hallucinations.
Seen by ENT, started on PPI
Appreciate pulmonary help
# Chocking and inability to breath at night
Patient has prolonged history ( years) of laryngeal issues described as chocking / irritant cough to clear her throat. She sleeps around 45 bed with multiple pillows at baseline. During illnesses like cold, her condition becomes very intense and
unable to swallow/ sleep or breathe. Recent family issues that made more stressed. She has not responded to steroid therapy/ inhalation therapy. Ativan helped her to relax and sleep, she and requested to reduce dose( doubt low dose will help
with panic feeling) but we can try. d/w pulmonary, started on gabapentin to help with coughing spasms. ENT is consulted, treat with PPI and f/u in office if needed. Consulted Psychiatry for underlying anxiety disorder/ panic disorder, appreciate
help.
'pink eye'--think viral--will add erythromycin eye ointment for now
#Myasthenia Gravis
Primary neurologist DR Phillips
Seems under control since her chocking episodes were presents for long time. Also steroid therapy did not help.
c/w CellCept
DVT Proph - SCD
Code status - Full Code
Total time spent to see the patient, examine the patient, review data and lab results, discuss treatment plan with patient, consultants, nursing staff around 55 minutes
Anticipated Discharge: Within 24 hours
Subjective/Interval History
-
Date of Service: July 29, 2025
No chest pain
No sob
dry cough
they asked to reduce Ativan dose
She requested to shower
Objective Data
-
Vital Signs:
Vital Signs
Temp Pulse Resp BP Pulse Ox
98 F 92 16 131/84 97
07/29/25 07:02 07/29/25 07:27 07/29/25 07:27 07/29/25 07:02 07/29/25 09:46
I&O
07/28/25 07/29/25 07/30/25
06:59 06:59 06:59
Intake Total 2994 / 2994 1200 / 1200
Balance 2994 / 2994 1200 / 1200
[2025-07-29] MEDS: TYLENOL ORAL SOLUTION 650 MG PO ×2 (11:30→23:49)
--- NOTE | 2025-07-29 11:52 | W.PN.UPDATE ---
Update Note
Progress Note Update
patient seen chart reviewed. discussed with nursing. at bedside. patient continues w spasms of cough. dr hall's note appreciated. mrs barriga felt the ativan o.5 mg was too sedating for her and it has been decreased to o.25 mg. noted
gabapentin ordered also for relief of coughing spasms. at this point i would not start zoloft. yes she may be anxious but in my opinion this is to be expected given the persistence of her respiratory malady. would continue with the ativan reduced
dose. xanax could also be considered as it has a shorter half life. the issue of pertussis was raised. i did check w ID re interpretation of serology. she has been vaccinated for pertussis and likely the results reflect that rather than pertussis
infection as a cause of her cough. psych will touch base w her tomorrow for support then likely sign off.
--- NOTE | 2025-07-29 14:06 | CM ---
Reviewed the chart notes. CM continues to be available to patient/family and is monitoring medical plan for needs at discharge.
Plan: Discharge to home when medically stable. No needs anticipated at this time.
[2025-07-29] MEDS: IMODIUM 2 MG PO (14:17)
[2025-07-29 15:47] VITALS: BP 120/83
[2025-07-29] MEDS: NEURONTIN 100 MG PO ×2 (16:04→21:24)
[2025-07-29] MEDS: ERYTHROMYCIN 0.5% OPHTHALMIC OINTMENT OPHTH ×2 (18:38→21:25)
[2025-07-29 23:30] VITALS: BP 121/81
[2025-07-30] MEDS: TYLENOL ORAL SOLUTION 650 MG PO ×2 (06:38→12:37)
[2025-07-30 07:00] VITALS: BP 122/75
[2025-07-30] MEDS: DUONEB 3 ML INH (07:33)
[2025-07-30] MEDS: TESSALON PERLES 200 MG PO (08:29)
[2025-07-30] MEDS: PROTONIX 40 MG PO (08:29)
[2025-07-30] MEDS: CELLCEPT 1000 MG PO (08:30)
[2025-07-30] MEDS: ERYTHROMYCIN 0.5% OPHTHALMIC OINTMENT OPHTH ×2 (08:30→12:45)
[2025-07-30] MEDS: NEURONTIN 100 MG PO (08:30)
--- NOTE | 2025-07-30 09:44 | W.PN.HOSP.TC ---
Today's Communication/Plan
-
dc
Assessment / Plan
Assessment / Plan
Physical Exam
-
General: Well Developed, Well Nourished and No Apparent Distress, continues to have dry mild cough while talking. in the room.
HEENT: Normocephalic and Atraumatic; Negative Oxygen
Respiratory: Clear to Auscultation/ Voice is better
Cardiac: Regular Rhythm and S1/S2; Negative Murmur
GI: Soft, Nontender, Normal Bowel Sounds and Distended
Musculoskeletal: No Clubbing, No Cyanosis and No Edema
Neuro: Awake and Alert, non focal
Psych: Calm, pleasant.
# cough with hoarseness
acute laryngitis , resolved.
Negative serology for active infection: Results consistent with a prior exposure/vaccination.
finished 5 days of Zithromax
finished course of IV Abx included IV Unasyn
s/p o CT neck & chest with contrast, unremarkable.
c/w Tessalon ATC
dc IV steroid due to lack of wheezes or sore throat and potential of having hallucinations.
Seen by ENT, started on PPI , OP follow-up.
For OP speech therapy.
Appreciate pulmonary help
# Chocking and inability to breath at night
She feels better after starting gabapentin.
Patient has prolonged history ( years) of laryngeal issues described as chocking / irritant cough to clear her throat. She sleeps around 45 bed with multiple pillows at baseline. During illnesses like cold, her condition becomes very intense and
unable to swallow/ sleep or breathe. Recent family issues that made more stressed. She has not responded to steroid therapy/ inhalation therapy. Ativan helped her to relax and sleep during attack. She and educated on how to use it only as
needed. d/w pulmonary, started on gabapentin to help with coughing spasms. ENT is consulted, treat with PPI and f/u in office. Consulted Psychiatry for underlying anxiety disorder/ panic disorder , ok to use Ativan PRN, , appreciate help.
'pink eye'--think viral--
c/w acute conjunctivitis
Resolved. No blurred vision, no pain in eyes.
#Myasthenia Gravis
Primary neurologist DR Phillips
Seems under control since her chocking episodes were presents for long time. Also steroid therapy did not help.
c/w CellCept
DVT Proph - SCD
Code status - Full Code
Total discharge time spent to see the patient, examine the patient, review data and lab results, discuss treatment plan with patient, , consultants, nursing staff around 67 minutes
Anticipated Discharge: Today
Subjective/Interval History
-
Date of Service: July 30, 2025
She feels better
slept well
Less cough
No chest pain or sob`
Objective Data
-
Vital Signs:
Vital Signs
Temp Pulse Resp BP Pulse Ox
98.3 F 102 17 122/75 97
07/30/25 07:00 07/30/25 07:35 07/30/25 07:35 07/30/25 07:00 07/30/25 07:35
I&O
07/29/25 07/30/25 07/31/25
06:59 06:59 06:59
Intake Total 1200 / 1200 2039
Balance 1200 / 1200 2039
--- NOTE | 2025-07-30 09:55 | W.PN.PUL.V3 ---
Today's Communication / Plan
-
Increase activity
Continue gabapentin
Stable for proposed discharge from a pulmonary perspective
Outpatient pulmonary follow-up
Assessment
-
54-year-old woman known smoker, history of rheumatoid arthritis on CellCept. No previous history of pulmonary problems. Developed a respiratory infection after her . Has reported several weeks of ongoing coughing. Cough paroxysms
interfering with lifestyle. Chest x-ray was clear. We were consulted on 07/25/2025 for evaluation.
Acute tracheobronchitis-asthmatic bronchitis
Chest x-ray 07/25/2025: Reviewed, showed clear lungs.
Negative COVID
Negative influenza/negative RSV
Vocal cord dyskinesia/laryngospasm
Reflux
Conditions present prior admission:
Myasthenia gravis
Plan
Respiratory has significantly improved-the previous episodes has of what sounds like laryngospasm or vocal cord dyskinesia/factitious asthma overnight resolved
Supplement oxygen if uhvbwy-ewmdklno-slprrjpvr on room air.
Aspiration precautions
Nebulizers-Pulmicort and DuoNebs
Steroids discontinued 07/28/2025
Tessalon perles continue
Gabapentin 100 mg 3 times daily added 07/29/2025 with improvement
Avoid narcotics-had hallucinations on Hycodan.
Consider lidocaine nebulizers if cough intractable-avoiding with swallowing difficulties
Nasal sprays
Episode 2 evenings ago responded to Ativan suggesting psych component to vocal cord dyskinesia events
CT neck- 07/27/2025-mild adenoid and tonsillar hypertrophy, no acute abnormalities, mucous retention cyst at the base of the left maxillary sinus
CT chest-07/27/2025-no acute pulmonary process, left upper lobe 3 mm benign calcified granuloma, additional left upper lobe 2 mm nodule is not clearly calcified
Finite course of antibiotics-finished azithromycin
Changed to Augmentin on 07/27/25 and now discontinued
Bordetella pertussis antibodies pending
Psychiatric evaluation [id number]-[id number] Ativan and consider Zoloft
ENT evaluation noted-reflux suspected-PPI added
Speech therapy evaluation noted-regular thin liquids, consider repeat video swallow
Will recommend patient stay off work for about 1 week-to rest her voice. Her voice is already hoarse.
Stable for proposed discharge-reviewed with hospitalist
Dr. Burris updated and in detail 07/25/[address] Nguyen, updated at the bedside 07/27/25 and lengthy update 07/28/2025-reviewed vocal cord dyskinesia/factitious asthma and need for psych/anxiolytics/speech therapy and ENT evaluation
Dr. Nguyen updated at the bedside 07/29/2025 as well as 07/30/2025
Dr. Nguyen reviewed with hospitalist Dr. Patrick 07/28/2025 as well as 07/29/2025 and 07/30/2025
Outpatient pulmonary follow-up recommended
Subjective Data
-
Date of Service:
Date of Service: July 30, 2025
Chief Complaint: Pulmonary Follow Up and Dyspnea Follow Up
Subjective:
Feels much improved, less short of breath, had a good night, slept well, no chest pain, abdominal pain
Review of Systems
General: Other (Per HPI)
Objective Data
Data Reviewed
Vital Signs / I&O:
Vital Signs
Temp Pulse Resp BP Pulse Ox
98.3 F 102 17 122/75 97
07/30/25 07:00 07/30/25 07:35 07/30/25 07:35 07/30/25 07:00 07/30/25 07:35
Intake and Output
07/29/25 07/30/25 07/31/25
06:59 06:59 06:59
Intake Total 1200 / 1200 2039
Balance 1200 / 1200 2039
SaO2: 97
Physical Exam
General: Respiratory Distress (n) and Comfortable
HEENT: Normocephalic and Anicteric
Cardiovascular: Regular Rhythm
Respiratory: Wheeze (n), Crackles (n), Rhonchi (n), Non-Labored Respirations, Accessory Resp Muscle Use (n) and Stridor (n)
GI: Soft and Non Distended
Neurology: Awake, Alert and No Motor Deficits
Skin: Warm, Cyanosis (n) and Jaundice (n)
Labs/Micro/Reports
Lab Data
07/27/25 08:59
07/27/25 08:59
--- NOTE | 2025-07-30 11:46 | CM ---
Reviewed the chart notes. Patient for discharge to home today. Per speech, recommending outpatient speech therapy. CM continues to be available to patient/family and is monitoring medical plan for needs at discharge.
Plan: Discharge to home today.
[2025-07-30 12:00] VITALS: BP 129/85
--- NOTE | 2025-07-30 12:31 | W.PN.UPDATE ---
Update Note
Progress Note Update
patient seen chart reviewed. discussed with nursing. patient is going home today. she is very pleased with this but her coughing does continue. she will be following up with pulmonary. i had spoken with dr alaniz yesterday to clarify gabapentin
for neurogenic properties of cough ativan prn. she does feel she is better although far from where she would like to be. she feels the ativan and gabapentin have been helpful. she asked me about the pertussin serology which i had explained to h
yesterday as he answered her phone. explained that the serology shows antibodies inidcating vaccination but igm was normal . patient does not need psych followup
--- NOTE | 2025-07-31 07:21 | W.DCSUMMARY ---
Discharge Summary
Discharge Data
Date of Admission: 07/25/25
Date of Discharge: 07/30/25
-
Pending Results: No
Hospital Course
54 years old female presented with cough and cold-like symptoms. Patient reported that her continue started as upper respiratory symptoms then progressed to persistent cough. Patient reported chronic cough and trouble swallowing large pills over
long time associated with panic like episodes of trouble breathing/swallowing, inability to sleep flat. Patient was admitted to the hospital for treatment of acute tracheobronchitis. She was evaluated by pulmonary doctor. She had negative
influenza/COVID/RSV/acute pertussis screen. She remained hemodynamically stable without hypoxia. She was started on steroid therapy with symptomatic treatment for cough. Patient continues to have panic-like episode with difficulty breathing and
laryngeal spasm mostly at night. She was evaluated by ENT without local pathology but recommended GERD treatment and outpatient follow-up. She was evaluated by psychiatry diagnosed with generalized anxiety disorder/panic disorder/PTSD without
homicidal/suicidal thoughts as patient reported recent family adverse events. Patient was given low-dose benzodiazepine to help with panic attack. Dose of benzodiazepine was titrated to avoid oversedation. She was started on low-dose gabapentin
with improvement in her anxiety and cough episodes. Patient was able to ambulate without distress. She finished course of empiric antibiotics. Patient was advised to follow-up with pulmonary/ENT/speech therapy for vocal cord dysfunction. Patient
was discharged home in stable condition.
Discharge Plan
-
Patient Disposition: Home (Routine Discharge)
Discharge Diagnosis/Procedures: Acute tracheobronchitis-asthmatic bronchitis
You were treated with a steroid, antibiotic. You were seen by pulmonary doctor/ ENT doctor. You received inhalation therapy.
- Vocal cord dyskinesia/laryngospasm
You will need to follow-up with speech therapy and ENT in the office.
You were started on gabapentin. Potential side effects include drowsiness.
- Anxiety disorder/panic attack. You were seen by psychiatrist. Use low-dose Ativan as needed only. Potential side effects of Ativan include drowsiness, sedation. You can take half of 0.5 mg initially, take the extra half if no improvement.
- Acute conjunctivitis, continue with the precautions.
- GERD, continue Protonix therapy.
Condition: Fair
Diet: As tolerated and Regular
Activity: As tolerated
Driving Restrictions: As prior to admission
Bathing Restrictions: None
Referrals:
Praful Walter MD [Active, Otology] - in two to three weeks
Chi Bradford MD [Active, Pulmonary Medicine] - in two to three weeks
Divya Gale DO [Family Provider, Internal Medicine] - in less than 1 week
Prescriptions:
New
pantoprazole 40 mg Tablet,Delayed Release (Dr/Ec)
40 mg PO DAILY Qty: 30 0RF
Rx Instructions:
Take 20-30 minutes before breakfast
gabapentin 100 mg Capsule
100 mg PO TID Qty: 90 0RF
benzonatate 100 mg Capsule
200 mg PO TIDPRN PRN (Reason: cough) Qty: 30 0RF
lorazepam [Ativan] 0.5 mg tablet
0.5 mg PO DAILY PRN (Reason: anxiety) Qty: 10 0RF
moxifloxacin 0.5 % drops
1 drp BOTH EYES TID Qty: 3 1RF
Continued
fluticasone propion-salmeterol [Advair Diskus] 250-50 mcg/dose Blister With Device
1 inh INHALATION R BID
mycophenolate mofetil [CellCept] 200 mg/mL Suspension For Reconstitution
1,000 mg PO BID
cholecalciferol (vitamin D3) [Vitamin D3] 25 mcg (1,000 unit) Tablet
25 mcg PO DAILY
albuterol sulfate 2.5 mg /3 mL (0.083 %) Solution For Nebulization
2.5 mg INHALATION R Q4HPRN PRN (Reason: sob)
therapeutic multivitamin Tablet
1 tab PO DAILY
Discontinued
benzonatate [Tessalon Perles] 100 mg Capsule
100 mg PO TIDPRN PRN (Reason: cough)
Discharge Orders:
Discharge Patient (As Directed); Ordered 07/30/25
Ordered By: Meka Patrick
Discharge Date and Time
Discharge Date/Time: 07/30/25 13:42
Print Language: OMANI
== END 2025-07-30 13:42 | disposition home or self-care (01) | DRG 153 ==
LOC: 2 NORTH 15:23
PROVIDERS: Internal Medicine; ADMITTING PHYSICIAN Internal Medicine; ATTENDING PHYSICIAN Internal Medicine; CONSULT PHYSICIAN Internal Medicine Critical Care Medicine; CONSULT PHYSICIAN Otolaryngology; EMERGENCY PHYSICIAN Emergency Medicine; FAMILY PHYSICIAN Internal Medicine; OTHER PHYSICIAN Psychiatry & Neurology Psychiatry
DX: J04.0 Acute laryngitis (principal); D84.9 Immunodeficiency, unspecified; J20.9 Acute bronchitis, unspecified; G70.00 Myasthenia gravis without (acute) exacerbation; M06.9 Rheumatoid arthritis, unspecified; J45.909 Unspecified asthma, uncomplicated; R06.89 Other abnormalities of breathing; F43.10 Post-traumatic stress disorder, unspecified; F41.0 Panic disorder [episodic paroxysmal anxiety]; F41.1 Generalized anxiety disorder; K21.9 Gastro-esophageal reflux disease without esophagitis; G24.9 Dystonia, unspecified; Z11.52 Encounter for screening for COVID-19
CPT/HCPCS: 70491; 71045; 71260; 80048; 80053; 81003; 81015; 83735; 85025; 85027; 86615; 87086; 87502; 87807; 87811; 92610; 94640; 94644; 96361; 96374; 96375; 99285; Q9967